=== PATIENT | female | born 1975 | race Caucasian/White ===

== ENCOUNTER 2022-03-12 21:58 | Emergency (ER) | payer BC, SELFPAY ==
--- NOTE | 2022-03-12 22:05 | PC.NURSE ---
patient states wait is too log and left before triage
[2022-03-12 22:28] VITALS: BP 139/84; PULSE 115; RESP 20; TEMP 38.4; O2SAT 100
[2022-03-13 01:28] VITALS: BP 132/80; PULSE 117; O2SAT 99
[2022-03-13 02:22] LABS: Basophils Percent Auto 0.2 % (0.2-1.2); Hematocrit 37.9 % (37.0-47.0); Hemoglobin 12.6 g/dL (12.0-15.0); Immature Granulocyte Absolute 0.02 K/mm3 (0.00-0.031); Immature Granulocyte Percent A 0.3 % (0-0.5); Lymphocytes Absolute Auto 0.47 K/mm3 (0.9-3.2); Lymphocytes Percent Auto 7.2 % (18.3-44.2); Mean Corpuscular HGB Conc 33.2 g/dl (32-36); Mean Corpuscular Hemoglobin 30.7 pg (26-34); Mean Corpuscular Volume 92.2 fl (80-100); Monocytes Absolute Auto 0.2 K/mm3 (0.1-0.6); Monocytes Percent Auto 3.5 % (2.6-8.5); Neutrophils Absolute Auto 5.8 K/mm3 (1.3-6.7); Neutrophils Percent Auto 88.8 % (45.5-73.1); Platelet Count Result 174 k/mm3 (150-375); Red Blood Count 4.11 M/mm3 (4.2-5.4); Red Cell Distribution Width 12.5 % (11.5-14.5); White Blood Count 6.5 K/mm3 (4.5-10.0)
[2022-03-13 02:29] LABS: Alanine Aminotransferase 15 U/L (6-35); Albumin Level 3.7 g/dL (3.5-5.1); Alkaline Phosphatase 50 U/L (38-126); Anion Gap 8 mmol/L (8-16); Aspartate Amino Transferase 23 U/L (14-36); Bilirubin,Total 0.4 mg/dL (0.2-1.3); Blood Urea Nitrogen 5 mg/dL (7-17); Calcium 8.5 mg/dL (8.4-10.2); Carbon Dioxide 24 mmol/L (22-30); Chloride 97 mmol/L (98-107); Estimated CRCL calculation 82 ml/min; Estimated Glomerular Filt Rate > 60; Glucose 116 mg/dL (65-110); Sodium 129 mmol/L (137-145)
[2022-03-13 02:49] VITALS: BP 131/78; PULSE 109; RESP 20; TEMP 37.9; O2SAT 98
[2022-03-13 03:01] LABS: Appearance Urine Clear (Clear); Bilirubin Urine Negative (Negative); Color Urine Yellow (Yellow); Glucose Urine UA Negative (Negative); Ketones Urine 3+ mg/dL (Negative); Leukocyte Esterase Ur Negative LEU/UL (Negative); Nitrate Urine Negative (Negative); Protein Urine 2+ mg/dL (Negative); Specific Grav Ur 1.015 (1.001-1.035); Urobilinogen Urine 0.2 mg/dL (<2.0); pH Urine 6.5 (5.0-9.0)
[2022-03-13 03:05] LABS: Mucus Urine Rare /lpf; Squamous Epithelial Cell Urine Rare /hpf (Few); WBC Urine 0-3 /hpf
[2022-03-13 03:06] LABS: Add Urine Microscopic? YES; Blood Urine Trace (Negative)
[2022-03-13 04:45] VITALS: PULSE 109; RESP 20
[2022-03-13] MEDS: ALBUTEROL SULFATE (*SP) INHALER 2 PUFF INHALATION (04:45)
[2022-03-13] MEDS: SODIUM CHLORIDE 0.9% IV 1,000 ML 999 ML IV CONT (05:29)
[2022-03-13] MEDS: ONDANSETRON INJ 4 MG/2 ML VIAL IV PUSH (05:30)
[2022-03-13] MEDS: KETOROLAC 30 MG/ML VIAL (*BKC) IV PUSH (05:31)
[2022-03-13] MEDS: BENZONATATE 100 MG CAPSULE 200 MG PO (05:31)
--- NOTE | 2022-03-13 05:52 | ED.GENADULT ---
HPI - General Adult General Chief complaint: Fever Stated complaint: covid positive not feelig well Time Seen by Provider: 03/13/22 03:46 History of Present Illness HPI narrative: Patient 46-year-old female who presents the emergency department with chief complaint of fever body aches and generalized malaise. The patient reports she was diagnosed with COVID-19 on Tuesday reports that she has been not sleeping she has been having nausea not been drinking and not eating. The patient states that she has had a dry cough patient reports that the symptoms or not improved by anything or they worsened by anything. Related Data Allergies Allergy/AdvReac Type Severity Reaction Status Date / Time No Known Allergies Allergy Verified 03/12/22 22:31 Review of Systems Review of Systems: A 10 system review of systems was completed on the patient and is negative except for what is stated in the HPI. Nursing and ancillary documentation was reviewed. Exam Narrative: GENERAL: Well-appearing, well-nourished, and in no acute distress. HEAD: Normocephalic, atraumatic. EYES: PERRLA and EOMI. ENT: Nares clear, no rhinorrhea or epistaxis. Mucous membranes moist. NECK: Supple. CHEST: Clear to auscultation. No respiratory distress. HEART: Regular rate and rhythm. No murmur heard. Normal peripheral pulses. ABDOMEN: Soft, nontender, nondistended, normal active bowel sounds. EXTREMITIES: Normal range of motion. No edema. SKIN: Warm, dry, no rash. NEURO: No focal deficits. Alert and oriented x3. PSYCH: Normal mood and affect. Course Course Emergency Course: Patient received hydration antitussives and both NSAID and acetaminophen. Vital Signs Vital signs: Vital Signs Temperature 38.4 C H 03/12/22 22:28 Pulse Rate 115 H 03/12/22 22:28 Respiratory Rate 20 03/12/22 22:28 Blood Pressure 139/84 03/12/22 22:28 Pulse Oximetry 100 03/12/22 22:28 Oxygen Delivery Room Air 03/12/22 22:28 Temperature 37.9 C H 03/13/22 02:49 Pulse Rate 109 H 03/13/22 04:45 Respiratory Rate 20 03/13/22 04:45 Blood Pressure 131/78 03/13/22 02:49 Pulse Oximetry 98 03/13/22 02:49 Oxygen Delivery Room Air 03/12/22 22:28 Medical Decision Making Vital Signs Vital Signs: Vital Signs Temperature 38.4 C H 03/12/22 22:28 Pulse Rate 115 H 03/12/22 22:28 Respiratory Rate 20 03/12/22 22:28 Blood Pressure 139/84 03/12/22 22:28 Pulse Oximetry 100 03/12/22 22:28 Oxygen Delivery Room Air 03/12/22 22:28 Temperature 37.9 C H 03/13/22 02:49 Pulse Rate 109 H 03/13/22 04:45 Respiratory Rate 20 03/13/22 04:45 Blood Pressure 131/78 03/13/22 02:49 Pulse Oximetry 98 03/13/22 02:49 Oxygen Delivery Room Air 03/12/22 22:28 Lab Data Result diagrams: 03/13/22 02:12 03/13/22 02:12 Labs: Lab Results 03/13/22 03/13/22 03/13/22 Range/Units 02:12 02:12 02:51 WBC 6.5 (4.5-10.0) K/mm3 RBC 4.11 L (4.2-5.4) M/mm3 Hgb 12.6 (12.0-15.0) g/dL Hct 37.9 (37.0-47.0) % MCV 92.2 (80-100) fl MCH 30.7 (26-34) pg MCHC 33.2 (32-36) g/dl RDW 12.5 (11.5-14.5) % Plt Count 174 (150-375) k/mm3 MPV 10.0 (7.4-10.4) fl Immature Gran % (Auto) 0.3 (0-0.5) % Neut % (Auto) 88.8 H (45.5-73.1) % Lymph % (Auto) 7.2 L (18.3-44.2) % [place] % (Auto) 3.5 (2.6-8.5) % Eos % (Auto) 0.0 (0-4.4) % Baso % (Auto) 0.2 (0.2-1.2) % Lymph # (Auto) 0.47 L (0.9-3.2) K/mm3 [place] # (Auto) 0.2 (0.1-0.6) K/mm3 Eos # (Auto) 0.0 (0-0.3) K/mm3 Baso # (Auto) 0.0 (0.0-0.1) K/mm3 Abs Immat Gran (auto) 0.02 (0.00-0.031) K/mm3 Absolute Neuts (auto) 5.8 (1.3-6.7) K/mm3 Absolute Nucleated RBC 0.0 (0.0-0.012) K/mm3 Nucleated RBC % 0.0 (0.0-0.2) % Sodium 129 L (137-145) mmol/L Potassium 4.0 (3.4-5.0) mmol/L Chloride 97 L (98-107) mmol/L Carbon Dioxide 24 (22-30) mmol/L Anion Gap 8 (8-16)
[2022-03-13 06:52] VITALS: BP 113/70; PULSE 94; RESP 16; TEMP 37.2; O2SAT 98
== END 2022-03-13 06:57 | disposition home or self-care (01) ==
PROVIDERS: Emergency Provider Emergency Medicine
DX: U07.1 COVID-19 (principal)
CPT/HCPCS: 36415; 80053; 81001; 85025; 94640; 96361; 96365; 96375; 99284; A9270; J0131; J1885; J2405; J7030